=== PATIENT | female | born 1965 | race Caucasian/White ===

== ENCOUNTER 2023-07-14 20:37 | Emergency (ER) | payer BC ==
[~2023-07-14] VITALS: Ht 160 cm; Wt 72.7 kg
[2023-07-14 20:51] VITALS: TEMP 98.4
[2023-07-14 21:30] LABS: INR 1.2 (0.8-3.0); PROTHROMBIN TIME 13.4 SECONDS (9.7-12.8)
[2023-07-14 21:33] LABS: PARTIAL THROMBOPLASTIN TIME 26.4 SECONDS (26.0-37.0)
[2023-07-14 21:43] LABS: D-DIMER < 200.00 ng/mLDDu (200-230)
[2023-07-14] MEDS ORDERED: oxyCODONE 5 MG TAB PO ONE (22:15)
[2023-07-14] MEDS ORDERED: Home Ondansetron ODT 4 MG #2 ODT/PACK PO ONE (22:15)
[2023-07-14 22:51] VITALS: BP 122/85; PULSE 92
== END 2023-07-14 22:51 | disposition home or self-care (01) ==
LOC: COL.ER 20:37
PROVIDERS: Emergency Medicine
DX: M79.604 Pain in right leg (principal); Z79.01 Long term (current) use of anticoagulants; Z91.148 Patient's other noncompliance with medication regimen for other reason